=== PATIENT | female | born 1955 | race Hispanic/Latino ===

== ENCOUNTER 2016-10-20 15:42 | Outpatient (CLI) | payer BC | END 2016-10-20 15:43 | disposition home or self-care (01) | LOC: LAB 15:42 | PROVIDERS: ATTEND Psychiatry & Neurology Neurology | DX: M06.9 Rheumatoid arthritis, unspecified (principal) | CPT/HCPCS: 36415; 85652; 86618 ==

== ENCOUNTER 2019-06-13 09:57 | Day surgery (SDC) | payer BC ==
[2019-06-13] MEDS ORDERED: LACTATED RINGERS 1,000 ML ONE ×2 (11:25→17:05)
[2019-06-13] MEDS ORDERED: ONDANSETRON 4 MG/2 ML INJ IV PRN (11:26)
[2019-06-13] MEDS ORDERED: fentaNYL 100 MCG/2 ML INJ IV PRN (11:26)
--- NOTE | 2019-06-13 11:26 | Anesthesia Day of Surgery ---
Anesthesia Day of Surgery - Day of Surgery Patient Examined: Yes Patient H&P Reviewed: Yes Patient is NPO: Yes
--- NOTE | 2019-06-13 11:36 | Anesthesia Consultation ---
Anesthesia Consult and Med Hx Date of service: 06/13/19 - Airway Anesthetic Teeth Evaluation: Good, Dentures, Edentulous (Upper) ROM Head & Neck: Adequate (S/P ACDF) Mental/Hyoid Distance: Adequate Mallampati Class: Class II Intubation Access Assessment: Probably Good - Pre-Operative Health Status ASA Pre-Surgery Classification: ASA2 Proposed Anesthetic Plan: General - Pulmonary Hx Smoking: No Hx Sleep Apnea: No (ELMER PRE SCREEN LOW RISK) - Cardiovascular System Hx Hypertension: No (States she can climb two flights of stairs) - Central Nervous System Hx Neuromuscular Disorder: Yes (Fibromyalgia) Hx Back Pain: Yes (NECK AND BACK PAIN) Hx Psychiatric Problems: Yes (Anxiety) - Other Systems Hx Cancer: Yes (SKIN CA REMOVED ON ARM)
[2019-06-13] MEDS ORDERED: MORPHINE 2 MG/1 ML INJ IV ONE (11:37)
[2019-06-13] MEDS ORDERED: MAGNESIUM OXIDE 400 MG TAB PO ONE (11:37)
[2019-06-13] MEDS ORDERED: LACTATED RINGERS 1,000 ML IV SCH (12:00)
[2019-06-13] MEDS ORDERED: MIDAZOLAM 2 MG/2 ML INJ IV NR (12:00)
[2019-06-13] MEDS ORDERED: ceFAZolin/STERILE WATER 2 GM/20 ML SYRINGE IV NR (12:04)
[2019-06-13] MEDS ORDERED: LIDOCAINE MPF (2%) 20 MG/1 ML VIAL 5 ML ONE (12:13)
[2019-06-13] MEDS ORDERED: fentaNYL 100 MCG/2 ML INJ ONE (12:13)
[2019-06-13] MEDS ORDERED: PROPOFOL 200 MG/20 ML VIAL IV ONE (12:13)
[2019-06-13] MEDS ORDERED: MORPHINE 2 MG/1 ML INJ IV NR (13:30)
[2019-06-13] MEDS ORDERED: MIDAZOLAM 2 MG/2 ML INJ IV PRN (13:30)
[2019-06-13] MEDS ORDERED: dexAMETHasone 20 MG/5 ML VIAL ONE (16:30)
[2019-06-13] MEDS ORDERED: ESMOLOL 100 MG/10 ML INJ IV ONE (16:34)
[2019-06-13] MEDS ORDERED: ONDANSETRON 4 MG/2 ML INJ ONE (16:35)
[2019-06-13] MEDS ORDERED: GLYCOPYRROLATE 0.4 MG/2 ML INJ ONE (16:37)
[2019-06-13] MEDS ORDERED: WATER FOR IRRIG STERILE 2000 ML IR ONE (16:37)
--- NOTE | 2019-06-13 17:11 | Short Stay Summary ---
Short Stay Documentation Date of service: 06/13/19 - History H&P: obtained from office - Allergies and Medications Current Medications: Allergies procaine HCl [From Novocain] Adverse Reaction (Verified 07/29/13 09:58) Swelling Home Medications Medication Instructions Recorded Confirmed Last Taken Type HYDROcodone/APAP 5-325 [[place] 1 - 2 each PO Q4-6H PRN #12 tablet 07/29/13 06/02/19 Unknown Rx 5/325 mg] Aspirin [Adult Aspirin] 81 mg PO DAILY 06/02/19 06/13/19 06/06/19 08:00 History Carisoprodol [Soma] 350 mg PO QID 06/02/19 06/13/19 06/12/19 20:00 History Oxycodone HCl [oxyCODONE] 15 mg PO QID 06/02/19 06/13/19 06/12/19 20:00 History Pregabalin [Lyrica] 150 mg PO QID 06/02/19 06/13/19 06/12/19 20:00 History Zolpidem [Ambien] 10 mg PO QHS 06/02/19 06/13/19 06/12/19 20:00 History clonazePAM [ Klonopin] 0.5 mg PO QHS 06/02/19 06/13/19 06/12/19 20:00 History levETIRAcetam [Keppra TAB] 500 mg PO QHS 06/02/19 06/13/19 06/12/19 20:00 History oxyCODONE ER [oxyCONTIN ER] 30 mg PO TID PRN 06/02/19 06/02/19 Unknown History traMADoL [Ultram] 50 mg PO Q4HR PRN 06/02/19 06/13/19 Unknown History Active Medications Cefazolin Sodium (Ancef/Sterile Water 2 Gm/20 Ml) 2 gm IV PREOP NR Stop: 06/13/19 23:00 Fentanyl (Sublimaze) 50 mcg IV Q5MIN PRN PRN Reason: Pain , Severe (7-10) Lactated Ringer's (Lactated Ringers) 1,000 mls @ 125 mls/hr IV DIRECT OSMIN Last Admin: 06/13/19 11:40 Dose: 125 mls/hr Documented by: Midazolam HCl (Versed) 2 mg IV PREOP NR Stop: 06/13/19 23:59 Last Admin: 06/13/19 12:00 Dose: 2 mg Documented by: Ondansetron HCl (Zofran) 4 mg IV ONCE PRN PRN Reason: Nausea And Vomiting - Brief post op/procedure progress note Date of procedure: 06/13/19 Pre-op diagnosis: hematuria , rec uti Post-op diagnosis: same Procedure: cysto rpg bladder bx Anesthesia: GETA Findings: few areas of erythema low susp Surgeon: STEVIE FRAZIER Estimated blood loss: minimal Pathology: list (trig, base, post, rt post) Specimen disposition: to lab Condition: stable - Hospital course Hospital course: or pacu home - Disposition Condition at discharge: Good Disposition: DC-01 TO HOME OR SELFCARE Short Stay Discharge Plan Activity: advance as tolerated Diet: advance as tolerated Follow up with: STEVIE FRAZIER MD [Staff Physician] - 10 Days
[2019-06-13] MEDS ORDERED: PHENAZOPYRIDINE 200 MG TAB PO SCH (18:00)
--- NOTE | 2019-06-13 18:05 | Fluoroscopy Report ---
8 fluoroscopic images submitted Indication: Intraoperative localization Impression: 8 images of the abdomen were submitted for documentation purposes with radiology involve ment. Bilateral retrograde pyelograms were performed utilizing 50 mL of Omnipaque 300. Please refer to operative note for complete details. Fluoroscopic time: 0.4 minutes Signer Name: Arnel Mackenzie MD Signed: 06/13/2019 6:01 PM Workstation Name: [id number]
[2019-06-13 18:45] VITALS: BP 158/77
--- NOTE | 2019-06-17 13:42 | Operative Report ---
PREOPERATIVE DIAGNOSES: Hematuria, bladder erythema and recurrent urinary tract infections. POSTOPERATIVE DIAGNOSES: Hematuria, bladder erythema and recurrent urinary tract infections. ANESTHESIA: General. FINDINGS: A few areas of erythema, low suspicion. SURGEON: Jonathan Carter MD ESTIMATED BLOOD LOSS: Minimal. PATHOLOGY: Biopsy of bladder trigone, bladder base, posterior bladder and right posterior bladder. PROCEDURE: Cystoscopy, RPG, bladder biopsy and fulguration. CLINICAL INDICATIONS: Counseled on RCBA, antibiotics. The patient has history of hematuria, recurrent UTI. Cystoscopy with some areas of erythema. Counseled on options, wanted biopsies. Antibiotics, SCDs. DESCRIPTION OF PROCEDURE: The patient transferred to OR suite in supine position, anesthesia, dorsal lithotomy, prepped and draped in standard fashion. A 22-Filipino scope passed. Pancystoscopy was performed. Left retrograde with 8-Filipino cone-tipped catheter demonstrated normal left distal ureter, proximal ureter, renal pelvis calyces. No filling defects or hydronephrosis. Repeated on the right side with similar normal findings. Next, we saw some areas of erythema at the bladder. These were low suspicion. No papillary areas. May be some slight raised area, but likely normal bladder findings, but a few areas of erythema, so biopsies were elected to be undertaken. Biopsy was taken at bladder trigone, bladder base, posterior bladder and right posterior bladder. These were fulgurated. Bladder irrigated and sent for pathology. Exam under anesthesia, no palpable urethral masses. The patient was awakened and transferred to PACU in good and stable condition. JOB# [id number] ATS/NTS
== END 2019-06-13 19:00 | disposition home or self-care (01) ==
LOC: OR 09:57
PROVIDERS: ATTEND Urology
DX: N30.31 Trigonitis with hematuria (principal); F41.9 Anxiety disorder, unspecified; M79.7 Fibromyalgia; Z79.899 Other long term (current) drug therapy; Z90.49 Acquired absence of other specified parts of digestive tract; Z90.13 Acquired absence of bilateral breasts and nipples; Z79.82 Long term (current) use of aspirin; Z98.49 Cataract extraction status, unspecified eye; Z90.710 Acquired absence of both cervix and uterus; Z85.89 Personal history of malignant neoplasm of other organs and systems
CPT/HCPCS: 52204; 74420; 88305; A4217; J1100; J2250; J2270; J2405; J2704; J3010; J7120; Q9967